=== PATIENT | female | born 1960 | race Hispanic/Latino ===

== ENCOUNTER 2022-05-02 13:17 | Day surgery (SDC) | payer OTHER, SELFPAY ==
--- NOTE | 2022-05-02 | PATH_ITS ---
[facility] Accession Number: [id number] . 01 Material submitted: . PART A: colon - ASCENDING COLON PART B: rectum - RECTUM . 01 Diagnosis: A. Ascending Colon, Biopsy: Tubular adenoma. . B. Rectum, Biopsy: Tubular adenoma in three of four fragments. Hyperplastic polyp, one fragment. MRV 05/04/2022 1443 Local . 01 Electronically signed: . Sabrina Bang MD, Pathologist NPI- [id number] . 01 Gross description: . Part A: ASCENDING COLON: Received in formalin is 1 fragment(s) of lopez, soft tissue measuring 0.1 x 0.1 x 0.1 cm submitted entirely in 1 cassette(s) Part B: RECTUM: Received in formalin are 4 fragment(s) of lopez, soft tissue measuring 0.5 x 0.3 x 0.2 cm to 0.2 x 0.2 x 0.1 cm submitted entirely in 1 cassette(s) /CPE 05/03/2022 0925 Local . 01 Pathologist provided ICD-10: D12.2, D12.8 . 01 CPT . 534518, 191260 Specimen Comment: A courtesy copy of this report has been sent to [phone] Performed at: 01 [facility] [address] [place] [address] [address] [facility], [place], [place] [id number] MD Hiram Grimes MD Phone: [phone]
[2022-05-02 13:40] VITALS: BP 123/69; PULSE 63; RESP 16; TEMP 36.1; O2SAT 96; BMI 28.3
[2022-05-02] MEDS: LACTATED RINGERS 1,000 ML 200 ML IV (13:49)
--- NOTE | 2022-05-02 14:22 | PM.HP.1 ---
History of Present Illness History of Present Illness Date Patient Seen: 05/02/22 Time Patient Seen: 14:22 Chief complaint: Colonoscopy Narrative: The patient presents for colorectal screening. They have never had any previous examination for such. No personal or family history of colon cancer. On further history denies any recent gastrointestinal symptoms. No nausea, vomiting, abdominal pain, loss of appetite, unexplained weight loss, change in bowel habits, or blood per rectum. Patient History Family & Social History Social History: household members spouse Tobacco & Substance use: Smoking Status Former smoker alcohol intake current alcohol intake frequency holiday/special occasion Substance Use Type does not use Meds Home Medications and Allergies Home Medications Medication Instructions Recorded Confirmed Type albuterol sulfate 90 mcg/actuation 1 puff INH Q4HP PRN allergies ##0 10/18/16 05/02/22 History aerosol inhaler (Ventolin HFA) alprazolam 0.5 mg tablet 0.25 mg PO HSP PRN Sleep ##0 10/18/16 05/02/22 History multivitamin (Multiple Vitamins 1 tab PO QDAY ##0 10/18/16 05/02/22 History tablet) sodium,potassium,mag sulfates 17.5 See Rx Instructions PO .COMPLEX 04/13/22 Rx gram-3.13 gram-1.6 gram oral soln #354 mL (Suprep Bowel Prep Kit) gabapentin 300 mg capsule 300 mg PO DAILY PRN Pain (Scale 05/01/22 05/02/22 History Score 4-6) letrozole 2.5 mg tablet 2.5 mg PO DAILY 05/01/22 05/02/22 History Allergies Allergy/AdvReac Type Severity Reaction Status Date / Time No Known Drug Allergies Allergy Verified 05/02/22 13:31 Exam Vital Signs (past 8 hours): - 05/02/22 13:40 Temperature 96.9 F L Pulse Rate 63 Respiratory Rate 16 Blood Pressure 123/69 Pulse Oximetry 96 Oxygen Delivery Method Room Air Oxygen Flow Rate 0 Oxygen Delivery Method Room Air Oxygen Flow Rate 0 Narrative Exam Narrative: General adult woman alert oriented no acute distress Assessment & Plan Assessment & Plan narrative: The patient requires colorectal screening and colonoscopy is recommended. Technical details were discussed. Risks, benefits, alternatives explained. Risks including but not limited to myocardial infarction, aspiration, bleeding, pain, missed lesion, incomplete examination, need for further radiographic studies, colonic perforation, and need for major abdominal surgery were discussed. All questions were answered to their satisfaction, and they are in agreement with this plan. Time Spent With Patient Critical Care time: I spent a total of [] minutes of critical care time on this patient's care today; this time is exclusive of procedural time.
--- NOTE | 2022-05-02 14:29 | PM.OP.COLON ---
Operative Date/Time/Diagnoses Date of procedure: 05/02/22 Time of procedure: 14:29 Pre-op diagnosis: Colorectal screening Post-op diagnosis: same Procedure & Clinicians Study performed: Colonoscopy Same procedure as scheduled: Yes Indications: Colorectal screening Surgeon: William Montoya Procedure Notes Procedure in detail: The history and physical was performed/updated and the patient is ASA class is 2. The procedure was discussed in detail with the patient. Potential risks complications including infection, bleeding, missed diagnosis, perforation, need for surgery, and were explained. Their questions were answered and informed consent was obtained. Patient was brought to the procedure room and placed standard monitoring equipment. The patient's vital signs were monitored continuously throughout the entire procedure. Prior to starting time-out was performed. The patient was placed in the left lateral recumbent position. Procedural sedation was administered by anesthesia. Examination began with a thorough inspection of the perianal area there was no evidence of fissures, fistulae, external hemorrhoids or cutaneous malignancy. The colonoscopy scope was then placed into the anal canal and was advanced to the cecum, which was identified by the ileocecal valve, the appendiceal orifice and the confluence of the taenia. The scope was then slowly withdrawn examining colon thoroughly in all directions, irrigating it of any residual stool. FINDINGS 1. Cecum-5 mm polyp removed with biopsy forceps 2. Rectum-5 mm polyp x2 removed with combination of Jumbo forceps and snare cold snare The patient tolerated the procedure well. They will be discharged once criteria are met. The prep was of good/excellent quality. The withdrawl time was 10 minutes. Specimen(s): other (Cecal polyp and rectal polyp x2) Complications: none Impression: Colonic polyps Post-procedure Recommendations: High fiber diet Plan for aftercare: Follow-up is dependent on pathology findings Disposition: same day surgery
[2022-05-02 14:57] VITALS: BP 101/63; PULSE 69; RESP 17; TEMP 36.1; O2SAT 98
[2022-05-02 15:02] VITALS: BP 108/73; PULSE 76; RESP 17; O2SAT 98
[2022-05-02 15:07] VITALS: BP 109/66; PULSE 71; RESP 15; TEMP 36.1; O2SAT 98
[2022-05-02 15:12] VITALS: BP 127/70; PULSE 62; RESP 14; O2SAT 99
== END 2022-05-02 15:23 | disposition home or self-care (01) ==
PROVIDERS: PCP Nurse Practitioner Family; Referring Provider Surgery; Visit Provider Surgery
PROC: 0DJD8ZZ Inspection of Lower Intestinal Tract, Via Natural or Artificial Opening Endoscopic (ICD-10-PCS; CPT 45378; principal; 2022-05-02 14:30)
DX: Z12.11 Encounter for screening for malignant neoplasm of colon (principal); D12.0 Benign neoplasm of cecum; D12.8 Benign neoplasm of rectum
CPT/HCPCS: 45385; 45380; J2704